=== PATIENT | female | born 1955 | race African-American/Black ===

== ENCOUNTER → 2021-07-22 | Outpatient (CLI) | payer OTHER | LOC: EXRD 11:23 | DX: M25.551 Pain in right hip (principal); G89.29 Other chronic pain | CPT/HCPCS: 73502 ==

== ENCOUNTER → 2021-11-12 | Outpatient (CLI) | payer OTHER | LOC: CT 10:48 | DX: R06.02 Shortness of breath (principal); R59.0 Localized enlarged lymph nodes; J98.11 Atelectasis; Z86.2 Personal history of diseases of the blood and blood-forming organs and certain disorders involving the immune mechanism | CPT/HCPCS: 36415; 71260; 82565; 84520; Q9967 ==